=== PATIENT | female | born 1960 | race Caucasian/White ===

== ENCOUNTER 2024-02-02 16:02 | Outpatient (CLI) | payer BC, SELFPAY ==
--- NOTE | ~2024-02-02 | XR_ITS ---
EXAM: XR hand BI arthritis min 3V DATE: 02/02/2024 16:27 HISTORY: Primary osteoarthritis, CHRONIC BILATERAL hand PAIN, NO INJ . COMPARISON: None available. FINDINGS: Normal mineralization. No fracture or dislocation. No lytic or blastic lesion. Scattered, predominantly interphalangeal degenerative changes typical of osteoarthritis, moderate at the second and third DIP joints bilaterally. No erosion or periosteal change. Soft tissues within normal limits. Old left ulnar styloid fracture IMPRESSION: Mild to moderate degrees of particular osteoarthritis in the bilateral hands. Reviewed, dictated and finalized at location K. IMPRESSION: Mild to moderate degrees of particular osteoarthritis in the bilate ral hands.
== END 2024-02-02 16:03 | disposition home or self-care (01) ==
LOC: ANHIMG 16:04
PROVIDERS: PCP Plastic Surgery; Visit Provider Plastic Surgery
DX: M19.041 Primary osteoarthritis, right hand (principal); M19.042 Primary osteoarthritis, left hand
CPT/HCPCS: 73130